=== PATIENT | female | born 1990 | race Caucasian/White ===

== ENCOUNTER 2019-03-16 13:40 | Day surgery (SDC) | payer OTHER ==
[~2019-03-16] VITALS: Ht 160 cm; Wt 73.3 kg
[2019-03-16] VITALS (16 sets, daily range): BP systolic 93–126; BP diastolic 51–83; PULSE 63–98; RESP 11–18; Ht 160 cm; Wt 73.3 kg
[~2019-03-16 13:40] MED LIST: ETHI1TAB PO; HYDR-4011 PO; HYDR-843 PO; IBUP-1542 PO; PROP10TA6 PO; [UNRECOGNIZED DRUG - OTHER] PO
[2019-03-16] MEDS ORDERED: LIDOCAINE 1%/EPI 30 ML INJ ONE (15:31)
[2019-03-16] MEDS ORDERED: BACITRACIN/POLYMYXIN 28.35 GM OINT TOP ONE (15:32)
[2019-03-16] MEDS ORDERED: OXYMETAZOLINE 0.05% 15 ML NAS SPRAY NASAL ONE (15:32)
[2019-03-16] MEDS ORDERED: COCAINE 4% 4 ML TOP ONE (15:32)
--- NOTE | 2019-03-16 15:53 | PREAC ---
Date/Time of Note Date/Time of Note DATE: 03/16/19 TIME: 15:52 Anesthesia Eval and Record Evaluation Time Pre-Procedure Interview DATE: 03/16/19 TIME: 15:52 Age 28 Sex female NPO: 8 hrs Preoperative diagnosis sinusitis Planned procedure endoscopic sinus surgery Past Medical History Past Medical History: Includes Cardio: Arrythmia Psych: Anxiety Surgery & Anesthesia Issues No known issue Meds Anticoagulation: No Beta Trev within 24 hr: No Reason Beta Trev not given: Pt. not on B-Trev Reported Medications Hydroxyzine Hcl* (Hydroxyzine Hcl*) 25 Mg Tablet, 25 MG PO PRN for prn, #40 TAB 03/16/19 Propranolol Hcl* (Propranolol Hcl*) 10 Mg Tablet, 10 MG PO BID, TAB 03/16/19 [lomotrigina] No Conflict Check, 25 MG PO BID 03/16/19 Ethinyl Estradiol/Drospirenone (Sherry 3 mg-0.02 mg Tablet) 1 Each Tablet, 1 EACH PO DAILY, TAB 03/16/19 Meds reviewed: Yes Allergies Coded Allergies: Sulfa (Sulfonamide Antibiotics) (Verified Allergy, Intermediate, swollen, 03/16/19) Allergies Reviewed: Yes Labs/Studies Labs Reviewed: Reviewed by anesthesiologist test: Negative Pre-procedure Exam Last vitals Vital Signs Date Temp Pulse Resp B/P (MAP) Pulse Ox O2 O2 Flow FiO2 Time Delivery Rate 03/16/19 98.7 82 16 105/61 99 Room Air 14:44 (76) Airway: Adequate mouth opening, Adequate thyromental dist Mallampati: Mallampati II Teeth: Normal Lung: Normal Heart: Normal ASA Physical Status ASA physical status: 2 Emergency: None Pre-operative Attestations Prior to commencing anesthesia and surgery, the patient was re-evaluated, there was verification of: *The patient's identity *The results of appropriate recent lab work and preoperative vital signs *The above evaluation not changing prior to induction *Anesthetic plan, risk benefits, alternative and complications discussed with patient/family; questions answered; patient/family understands, accepts and wishes to proceed. HEIDI CHRISTIAN DO Mar 16, 2019 15:53
[2019-03-16] MEDS ORDERED: HYDROmorphONE 1 MG/5 ML IV SYRINGE IV PRN ×6 (16:00→20:30)
--- NOTE | 2019-03-16 17:36 | HPN ---
Date/Time of Note Date/Time of Note DATE: 03/16/19 TIME: 17:36 Interval H&P Admission Note Pt. seen H&P reviewed: No system changes ESTEFANÍA ELIAS MD Mar 16, 2019 17:36
[2019-03-16] MEDS ORDERED: SUCCINYLCHOLINE CHLORIDE 100 MG/5 ML SYG IV ONE (19:30)
[2019-03-16] MEDS ORDERED: PROPOFOL 20 ML ONE ×2 (19:30→19:54)
[2019-03-16] MEDS ORDERED: DESFLURANE 15 MIN ONE (19:30)
[2019-03-16] MEDS ORDERED: FENTAnyl 50 MCG/ML VIAL ONE (19:35)
[2019-03-16] MEDS ORDERED: METOCLOPRAMIDE 10 MG INJ ONE (19:38)
[2019-03-16] MEDS ORDERED: ONDANSETRON 4 MG INJ ONE (19:38)
[2019-03-16] MEDS ORDERED: CEFAZOLIN 1 GM INJ ONE (19:47)
[2019-03-16] MEDS ORDERED: ONDANSETRON 4 MG INJ IV PRN (20:30)
[2019-03-16] MEDS ORDERED: FENTAnyl 50 MCG/ML VIAL IV PRN ×3 (20:30)
[2019-03-16] MEDS ORDERED: DIPHENHYDRAMINE 50 MG INJ IV PRN (20:30)
[2019-03-16] MEDS ORDERED: OXYCODONE/ACETAMINOPHEN (5/325) TAB PO PRN ×3 (20:30)
[2019-03-16] MEDS ORDERED: MEPERIDINE 25 MG INJ IV PRN (20:30)
--- NOTE | 2019-03-16 20:35 | OPR ---
Date/Time of Note Date/Time of Note DATE: 03/16/19 TIME: 20:26 Operative Report Procedure Date: Mar 16, 2019 Preoperative Diagnosis Chronic and recurrent sinusitis Postoperative Diagnosis Same Operation/Procedure Performed Image guided bilateral endoscopic frontal sinusotomies, maxillary antrostomies, total ethmoidectomies, sphenoid sinusotomies. Surgeon see signature line [employer] None Anesthesia Type: general Estimated Blood Loss: 10 - 50 ml's Transfusion none Specimen None Grafts/Implants none Complications none Pt Condition Post Procedure: stable Disposition: PACU Indications Chronic and recurrent sinusitis. Findings. Fairly normal sinus mucosa. Varian middle turbinate anatomy confirmed radiographic anatomy of lateral attachment towards the mid lamina. Procedure Description Description of procedure:The patient was identified in the holding area. We had a discussion to confirm understanding of all indications risks benefits alternatives and postoperative care associated with the operation. The patient signed informed consent was taken to the operating room. The patient was laid supine on the operating room table and anesthesia was provided in the following manner: GETA. The face was draped in sterile fashion and the nose was packed with 4% cocaine pledgets. The uncinate process was infiltrated with 0.5 cc of 1% lidocaine with epinephrine on each side. 0 endoscopy was performed of all nasal turbinates and meati. This revealed the findings described above. The [employer] system was installed and found to be functioning appropriately. The procedure began on the left side under endoscopic guidance. The microdebrider was used to resect the uncinate process in an inferior to superior fashion until the area of the frontal sinus outflow tract was reached. Dissection was limited as much as possible to preserve the middle turbinate attachment. Frontal sinusotomy: A curved curet was used to remove the bony elements of the Ager Nasi cell. A frontal sinus balloon was used to dilate the tract. Next, with a 45 camera, the frontal sinus outflow tract was explored and any abnormal mucosa was resected. Care was taken not to cause too much mucosal disruption in this area in order to avoid scarring and stenosis. The tract was patent without polyp or obstructive pathology. Maxillary antrostomy: Once the frontal sinus was addressed, the maxillary sinus ostium was identified and entered with the microdebrider. It was widened anteriorly and inferiorly to complete the maxillary antrostomy. No intrasinus mass or polyp was seen. Ethmoidectomy: Next, the zero degree endoscope was again used to visualize the middle meatus. Anterior and posterior ethmoid air cells were resected in an inferior to superior fashion sparing the lamina papyracea and the skull base. All excess mucosa and polypoid tissue were removed with an upbiting forcep. Sphenoid sinusotomy: The anterior face of the sphenoid sinus was identified with the zero degree endoscopy and entered inferiorly and medially with a seeker. The microdebrider was used to widen this inferomedially to complete the sphenoid sinusotomy. This was very minimal as there was no real mucosal disease noted. At this point, all bony fragments were removed and a large Nasopore was placed into the ethmoidectomy defect. The contralateral side was at this point addressed in the same sequence dictated above. Frontal sinusotomy, total ethmoidectomy, sphenoid sinusotomy and maxillary antrostomy proceeded in the exact same sequences as the contralateral side. On the right side, the middle turbinate was thinner and even less securely attached to the lateral nasal wall. More care was needed to preserve attachment. Some ethmoid cells were left alone to achieve this effect. At completion, this side was also packed with a Nasopore pack and bilateral hemostasis was ensured with a final nasal endoscopy. The patient was awakened, extubated and taken to the PACU in stable condition. Complications: None. ESTEFANÍA ELIAS MD Mar 16, 2019 20:35
--- NOTE | 2019-03-20 09:38 | PAC ---
Date/Time of Note Date/Time of Note DATE: 03/18/19 TIME: 09:36 Post-Anesthesia Notes Post-Anesthesia Note Last documented vital signs Vital Signs Date Temp Pulse Resp B/P (MAP) Pulse Ox O2 O2 Flow FiO2 Time Delivery Rate 03/16/19 88 16 123/70 98 Room Air 21:44 (87) 03/16/19 8.0 20:44 03/16/19 98.0 20:38 Activity: WNL Respiratory function: WNL Cardiovascular function: WNL Mental status: Baseline Pain reasonably controlled: Yes Hydration appropriate: Yes Nausea/Vomiting absent: No Copies To: CC: ; CHARLES VOGT MD Mar 20, 2019 09:38
== END 2019-03-16 22:06 | disposition home or self-care (01) ==
LOC: SDS 13:40
PROVIDERS: ATTEND Otolaryngology
DX: J32.9 Chronic sinusitis, unspecified (principal)
CPT/HCPCS: 31090; 84703; J0690; J1170; J2405; J2765; J3010; Z7512; Z7610

== ENCOUNTER 2019-03-18 10:51 | Emergency (ER) | payer OTHER ==
[~2019-03-18] VITALS: Wt 72.7 kg
--- NOTE | 2019-03-18 12:06 | ERD ---
ER Documentation Chief Complaint Chief Complaint UPPER BACK PAIN X 2 DAYS, HAD SINUS SURGERY 2 DAYS AGO HPI 28-year-old female presents with complaint of chest and neck pain for the past 2 days. States she recently had sinus surgery 2 days ago for which she was intubated under general anesthesia. Stated this which lasted about an hour. States she has had some hemoptysis but is probably due to the surgery. In addition she admits to dyspnea. Denies any fevers, cough, shortness of breath, diaphoresis, orthopnea, leg swelling, leg erythema, history of clots, history of malignancy. ROS All systems reviewed and are negative except as per history of present illness. Medications Home Meds Active Scripts Hydrocodone/Acetaminophen (Mcintosh 5-325 Tablet) 1 Each Tablet, 1 TAB PO Q6H PRN for PAIN, #10 TAB Prov:OPAL VICLHIS 03/18/19 Ibuprofen* (Motrin*) 600 Mg Tab, 600 MG PO Q6, #30 TAB Prov:OPAL VILCHIS 03/18/19 Reported Medications Hydroxyzine Hcl* (Hydroxyzine Hcl*) 25 Mg Tablet, 25 MG PO PRN for prn, #40 TAB 03/16/19 Propranolol Hcl* (Propranolol Hcl*) 10 Mg Tablet, 10 MG PO BID, TAB 03/16/19 [lomotrigina] No Conflict Check, 25 MG PO BID 03/16/19 Ethinyl Estradiol/Drospirenone (Sherry 3 mg-0.02 mg Tablet) 1 Each Tablet, 1 EACH PO DAILY, TAB 03/16/19 Allergies Allergies: Coded Allergies: Sulfa (Sulfonamide Antibiotics) (Verified Allergy, Intermediate, swollen, 03/18/19) PMhx/Soc History of Surgery: Yes (sinus surgery 03/16/19) Anesthesia Reaction: No Hx Neurological Disorder: No Hx Respiratory Disorders: No Hx Cardiac Disorders: No Hx Psychiatric Problems: Yes (anxiety, mood disorder) Hx Miscellaneous Medical Probl: No Hx Alcohol Use: No Hx Substance Use: Yes (recreational drugrs) Hx Tobacco Use: No Smoking Status: Never smoker FmHx Family History: No diabetes, No coronary disease, No other Physical Exam Vitals Vital Signs Date Temp Pulse Resp B/P (MAP) Pulse Ox O2 O2 Flow FiO2 Time Delivery Rate 03/18/19 98.2 94 17 106/66 99 Room Air 16:06 (79) 8/1/19 98.1 96 18 120/74 99 10:55 (89) Physical Exam Const: No acute distress Head: Atraumatic Eyes: Normal Conjunctiva ENT: Normal External Ears, Nose and Mouth. Neck: Full range of motion. No meningismus. Resp: Clear to auscultation bilaterally Cardio: Regular rate and rhythm, no murmurs Abd: Soft, non tender, non distended. Normal bowel sounds Skin: No petechiae or rashes Back: No midline or flank tenderness Ext: No cyanosis, or edema Neur: Awake and alert Psych: Normal Mood and Affect Result Diagram: 03/18/19 1253 03/18/19 1253 Results 24 hrs Laboratory Tests Test 03/18/19 12:48 03/18/19 12:50 03/18/19 12:53 POC Beta HCG, Qualitative NEGATIVE Bedside Urine pH (LAB) 6.0 Bedside Urine Protein (LAB) 1+ Bedside Urine Glucose (UA) Negative Bedside Urine Ketones (LAB) 2+ Bedside Urine Blood Negative Bedside Urine Nitrite (LAB) Negative Bedside Urine Leukocyte Esterase (L Negative White Blood Count 6.0 10^3/ul Red Blood Count 4.23 10^6/ul Hemoglobin 12.7 g/dl Hematocrit 36.5 % Mean Corpuscular Volume 86.3 fl Mean Corpuscular Hemoglobin 30.0 pg Mean Corpuscular Hemoglobin Concent 34.8 g/dl Red Cell Distribution Width 11.9 % Platelet Count 244 10^3/UL Mean Platelet Volume 10.3 fl Immature Granulocytes % 0.200 % Neutrophils % 58.2 % Lymphocytes % 33.7 % Monocytes % 7.0 % Eosinophils % 0.7 % Basophils % 0.2 % Nucleated Red Blood Cells % 0.0 /100WBC Immature Granulocytes # 0.010 10^3/ul Neutrophils # 3.5 10^3/ul Lymphocytes # 2.0 10^3/ul Monocytes # 0.4 10^3/ul Eosinophils # 0.0 10^3/ul Basophils # 0.0 10^3/ul Nucleated Red Blood Cells # 0.0 10^3/ul Prothrombin Time 12.2 Sec Prothrombin Time Ratio 1.0 INR International Normalized Ratio 0.89 Activated Partial Thromboplast Time 26.5 Sec D-Dimer 539.30 ng/ml D-Dimer Comment Sodium Level 140 mmol/L Potassium Level 3.6 mmol/L Chloride Level 101 mmol/L Carbon Dioxide Level 31 mmol/L Anion Gap 8 Blood Urea Nitrogen 7 mg/dl Creatinine 0.74 mg/dl Est Glomerular Filtrat Rate mL/min > 60 mL/min Glucose Level 138 mg/dl Calcium Level 9.6 mg/dl Total Bilirubin 0.6 mg/dl Direct Bilirubin 0.00 mg/dl Indirect Bilirubin 0.6 mg/dl Aspartate Amino Transf (AST/SGOT) 46 IU/L Alanine Aminotransferase (ALT/SGPT) 22 IU/L Alkaline Phosphatase 47 IU/L Troponin I < 0.012 ng/ml Total Protein 6.9 g/dl Albumin 4.2 g/dl Globulin 2.70 g/dl Albumin/Globulin Ratio 1.55 Current Medications Medications Dose Sig/Stefani Start Time Status Last (Trade) Ordered Route PRN Stop Time Admin Dose Reason Admin 1 tab ONCE ONCE 03/18/19 DC 03/18/19 Acetaminophen PO 12:30 03/18/19 12:58 / 12:31 Hydrocodone Bitart (Mcintosh (5/325)) Sodium 1,000 ml @ Q1H STAT 03/18/19 DC 03/18/19 Chloride 1,000 mls/hr IV 13:34 03/18/19 14:10 14:33 Morphine 2 mg ONCE STAT 03/18/19 DC 03/18/19 Sulfate IV 13:34 03/18/19 14:11 (morphine) 13:41 Ondansetron 2 mg ONCE STAT 03/18/19 DC 03/18/19 HCl (Zofran IV 13:34 03/18/19 14:10 Inj) 13:42 IV Flush 10 ml STK-MED 03/18/19 DC (NS 10 ml) ONCE .ROUTE 14:12 03/18/19 14:13 Sodium 100 ml @ ud STK-MED 03/18/19 DC Chloride ONCE .ROUTE 14:12 03/18/19 14:13 Iohexol 50 ml STK-MED 03/18/19 DC (Omnipaque ONCE .ROUTE 14:12 03/18/19 350mg/ ml) 14:13 Procedures/MDM EKG: Rate/Rhythm: Normal Sinus Rhythm QRS, ST, T-waves: No changes consistent w/ acute ischemia Impression: No evidence of ischemia or arrhythmia DIAGNOSTIC IMAGING REPORT Patient: MACIE MANN : 1990 Age: 28 Sex: F MR #: [id number] DOS: 03/18/19 1334 Ordering MD: OPAL VILCHIS Location: [facility] Room/Bed: PROCEDURE: CTA Chest. CLINICAL INDICATION: Chest pain TECHNIQUE: The study was performed utilizing multidetector CT scanner. Direct spiral axial sections were obtained from the thoracic inlet to the upper abdomen with the use of 100 cc of Omnipaque 350 intravenous contrast material and reformatted. The images were reviewed on a PACS workstation. 3-D volume rendered images were performed. Sagittal and coronal reformatted images were obtained from the axial source images. DICOM images are available. DLP 442.06 mGy.cm mGycm CTDIvol 36.99 mGy mGy One or more of the following post reduction techniques were used: - Automated exposure control. - Adjustment of the mA and/or Kv according to patient's size. - Use of iterative reconstruction technique COMPARISON: No prior studies are available for comparison. FINDINGS: The aorta is without aneurysmal dilatation or dissection. The visualized pulmonary arteries are without evidence of filling defect to suggest pulmonary embolus. The lungs are clear. No abnormal soft tissue masses or nodular densities are visualized. There is no pleural effusion. There is no pericardial effusion. There are no pathologic enlarged mediastinal lymph nodes. The osseous structures are unremarkable. There is a 7 mm hypodense lesion near the dome of the liver, incompletely characterized. The adrenal glands are normal. RPTAT: AA IMPRESSION: No CT evidence for pulmonary embolus. Small 7 mm hypodense lesion in the lobe of the liver, incompletely characterized. .Saturnino Vera MD, MD Date Time Electronically viewed and signed by .Saturnino Vera MD, on 03/18/2019 14:43 .S/ CC: OPAL VILCHIS [phone] MDM: Case was discussed with supervising physician we agreed that according to PERC criteria patient cannot be excluded having pulmonary embolism due to her recent surgery and complaint of dyspnea. Therefore, d-dimer was taken and results were elevated. I then discussed the case with supervising physician Dr. Nair who stated that given elevated d-dimer we will need to do CT angiogram with contrast. I discussed with the patient the risks and benefits of CT angiogram of chest with contrast and she stated that she would like to do it. CT was performed and results within normal limits. CXR, EKG, troponin were WNL as well. I have low suspicion for acute coronary syndrome, pulmonary embolism, aortic dissection, AAA, pneumothorax, esophageal rupture, pericarditis, myocarditis, or pneumonia based on EKG, imaging, labs, patient history and exam. At this time, patient is stable for discharge and outpatient management. I have instructed the patient to follow-up with his/her primary care physician in 1 day. I have discussed with the patient the possibility of needing to see a specialist for further workup and imaging studies if symptoms persist. I have instructed the patient to promptly return to the ER for any new or worsening symptoms including but not limited to increased pain, fever, nausea, vomiting, weakness or LOC. The patient and/or family expressed understanding of and agreement with this plan. All questions were answered. Home care instructions were provided. DISCLAIMER: Inadvertent spelling and grammatical errors are likely due to EHR/dictation software use and do not reflect on the overall quality of patient care. Also, please note that the electronic time recorded on this note does not necessarily reflect the actual time of the patient encounter. Departure Diagnosis: Primary Impression: Chest pain Condition: Stable OPAL VILCHIS Mar 18, 2019 12:06
[2019-03-18] MEDS ORDERED: HYDROCODONE/APAP (5/325) TAB PO ONE (12:30)
[2019-03-18] MEDS ORDERED: SOD CHLORIDE 0.9% 1,000 ML IV STA (13:34)
[2019-03-18] MEDS ORDERED: ONDANSETRON 4 MG INJ IV STA (13:34)
[2019-03-18] MEDS ORDERED: morphine 2 MG INJ IV STA (13:34)
[2019-03-18] MEDS ORDERED: IOHEXOL 350MG/ML 50 ML BTL ONE (14:12)
[2019-03-18] MEDS ORDERED: SOD CHLORIDE 0.9% 100 ML ONE (14:12)
[2019-03-18 16:06] VITALS: BP 106/66; PULSE 94; RESP 17
== END 2019-03-18 16:11 | disposition home or self-care (01) ==
LOC: FTE 10:51
DX: R07.9 Chest pain, unspecified (principal)
CPT/HCPCS: 71045; 71275; 80053; 81003; 81025; 84484; 85025; 85378; 85610; 85730; 93005; J2270; J2405; J7030; Q9967; Z7610; 96361; 96374; 96375

== ENCOUNTER 2019-05-02 15:39 | Emergency (ER) | payer OTHER ==
[~2019-05-02] VITALS: Wt 76.2 kg
[~2019-05-02 15:39] MED LIST changes: +GABA300C16 PO; +NAPR-985 PO
[2019-05-02 15:45] VITALS: BP 161/80; PULSE 73; RESP 20
[2019-05-02] MEDS ORDERED: HYDROCODONE/APAP (5/325) TAB PO ONE (17:30)
== END 2019-05-02 19:04 | disposition home or self-care (01) ==
LOC: FTE 15:39
DX: G50.0 Trigeminal neuralgia (principal)
CPT/HCPCS: Z7502; Z7610; 99283